=== PATIENT | male | born 1945 | race Caucasian/White ===

== ENCOUNTER 2018-08-27 12:22 | Inpatient (IN) | payer MEDICARE, MEDICAID ==
[~2018-08-27] VITALS: Ht 152.4 cm; Wt 63.5 kg
[~2018-08-27 12:22] MED LIST: ASPI-1159 PO; CARB200T PO; CLOZ100T31 PO; DOCU-150 PO; FERR-63 PO; FOLI-43 PO; MULT-1146 PO; RANI-633 PO
[2018-08-27 13:29] LABS: BASOPHILS % 0.4 % (0.0-2.0); EOSINOPHILS % 0.4 % (0.0-5.0); HEMATOCRIT. 34.2 % (42.0-52.0); HEMOGLOBIN. 11.5 g/dL (14.0-18.0); LYMPHOCYTES % 7.6 % (20.0-50.0); MEAN CORPUSCULAR HEMOGLOBIN 32.1 pg (28.0-32.0); MEAN CORPUSCULAR VOLUME 95.4 fL (80.0-94.0); MEAN PLATELET VOLUME 8.6 fl (7.4-10.4); MONOCYTES % 7.2 % (2.0-8.0); NEUTROPHILS % 84.4 % (40.0-76.0); PLATELET 178 x1000/uL (130-400); RED BLOOD CELL COUNT 3.59 mill/uL (4.7-6.1); RED CELL DISTRIBUTION WIDTH 14.4 % (11.6-14.6)
[2018-08-27 13:38] LABS: INR 1.1; PARTIAL THROMBOPLASTIN TIME 32.5 sec (23.4-31.0); PROTHROMBIN TIME 11.4 sec (9.1-11.1)
[2018-08-27 13:41] LABS: CHLORIDE 109 mEq/L (98-107); ETHANOL BLOOD < 10 mg/dL
[2018-08-27 13:47] LABS: CREATINE KINASE 39 IU/L (39-308)
[2018-08-27 13:49] LABS: CREATINE KINASE MB FRACTION < 1.0 ng/mL (0.5-3.6)
[2018-08-27 16:10] LABS: *AMPHETAMINES SCREEN URINE NEGATIVE (NEGATIVE); *BARBITURATES SCREEN URINE NEGATIVE (NEGATIVE); *BENZODIAZEPINES SCREEN URINE NEGATIVE (NEGATIVE); *COCAINE SCREEN URINE NEGATIVE (NEGATIVE); METHADONE URINE SCREEN NEGATIVE (NEGATIVE)
[2018-08-27 16:12] LABS: CANNABINOID URINE SCREEN NEGATIVE (NEGATIVE); OPIATES URINE SCREEN NEGATIVE (NEGATIVE); PHENCYCLIDINE URINE SCREEN NEGATIVE (NEGATIVE)
[2018-08-27] MEDS ORDERED: CLONIDINE 0.1MG TABLET PO PRN (16:30)
[2018-08-27] MEDS ORDERED: ONDANSETRON HCL 4MG/2ML INJ IV PRN (16:30)
[2018-08-27] MEDS ORDERED: DOCUSATE SODIUM 100MG CAPSULE PO PRN (16:30)
[2018-08-27] MEDS ORDERED: HYDROCODONE/ACETAMINOPHEN 5/325MG TABLET PO PRN (16:30)
[2018-08-27] MEDS ORDERED: IPRATROPIUM/ALBUTEROL 0.5-3(2.5)MG/3ML NEB INH PRN (16:30)
[2018-08-27] MEDS ORDERED: GUAIFENESIN 200MG/10ML SUGAR FREE UDC PO PRN (16:30)
[2018-08-27] MEDS ORDERED: MAGNESIUM/ALUMINUM HYDROXIDE/SIMETHICONE 30ML UDC PO PRN (16:30)
[2018-08-27] MEDS: SODIUM CHLORIDE 0.9% 1,000 ML IV SCH (20:54)
[2018-08-27] MEDS ORDERED: OMEPRAZOLE 20MG CAPSULE EXTENDED RELEASE PO SCH (21:00)
[2018-08-27] MEDS: ACETAMINOPHEN 325MG TABLET PO PRN (21:02)
[2018-08-28 04:03] VITALS: BP 132/62
[2018-08-28 04:26] VITALS: BP 124/63
[2018-08-28] MEDS: FOLIC ACID 1MG TABLET PO SCH (08:02)
[2018-08-28] MEDS: THIAMINE HCL 100MG TABLET PO SCH (08:02)
[2018-08-28] MEDS: OMEPRAZOLE 20MG CAPSULE EXTENDED RELEASE PO SCH ×2 (08:02→20:53)
[2018-08-28] MEDS: FERROUS SULFATE 325MG TABLET PO SCH (08:02)
[2018-08-28] MEDS: MULTIVITAMINS,THER W-MINERALS TABLET PO SCH (08:02)
[2018-08-28] MEDS: CARBAMAZEPINE 200MG TABLET PO SCH (08:03)
[2018-08-28 08:10] VITALS: BP 122/54
[2018-08-28] MEDS ORDERED: FERROUS SULFATE 325MG TABLET PO SCH ×2 (09:00)
[2018-08-28] MEDS ORDERED: CARBAMAZEPINE 200MG TABLET PO SCH (09:00)
[2018-08-28 12:21] VITALS: BP 114/52
[2018-08-28] MEDS: SODIUM CHLORIDE 0.9% 1,000 ML IV SCH ×2 (13:04→20:37)
[2018-08-28 16:20] VITALS: BP 112/56
[2018-08-28] MEDS ORDERED: NON FORMULARY PATIENT HOME MED EA XX SCH ×2 (18:30→21:00)
[2018-08-28 20:00] VITALS: BP 110/40
[2018-08-29] VITALS (7 sets, daily range): BP systolic 106–137; BP diastolic 54–71
[2018-08-29 06:52] LABS: BASOPHILS % 0.4 % (0.0-2.0); EOSINOPHILS % 3.7 % (0.0-5.0); HEMATOCRIT. 31.9 % (42.0-52.0); HEMOGLOBIN. 10.6 g/dL (14.0-18.0); MEAN CORPUSCULAR HEMOGLOBIN 31.8 pg (28.0-32.0); MEAN CORPUSCULAR VOLUME 95.5 fL (80.0-94.0); MONOCYTES % 10.3 % (2.0-8.0); NEUTROPHILS % 66.6 % (40.0-76.0); PLATELET 180 x1000/uL (130-400); RED BLOOD CELL COUNT 3.35 mill/uL (4.7-6.1); RED CELL DISTRIBUTION WIDTH 14.5 % (11.6-14.6)
[2018-08-29] MEDS: OMEPRAZOLE 20MG CAPSULE EXTENDED RELEASE PO SCH ×2 (07:00→21:37)
[2018-08-29] MEDS: FOLIC ACID 1MG TABLET PO SCH (08:27)
[2018-08-29] MEDS: CARBAMAZEPINE 200MG TABLET PO SCH (08:27)
[2018-08-29] MEDS: FERROUS SULFATE 325MG TABLET PO SCH (08:27)
[2018-08-29] MEDS: THIAMINE HCL 100MG TABLET PO SCH (08:27)
[2018-08-29] MEDS: ASPIRIN 81MG TABLET PO SCH (08:27)
[2018-08-29] MEDS: MULTIVITAMINS,THER W-MINERALS TABLET PO SCH (08:27)
[2018-08-29 09:40] LABS: CHLORIDE 111 mEq/L (98-107)
[2018-08-29 09:50] LABS: PHOSPHORUS 2.5 mg/dL (2.5-4.9)
[2018-08-29] MEDS: SODIUM CHLORIDE 0.9% 1,000 ML IV SCH (11:11)
[2018-08-29 16:30] LABS: CREATINE KINASE 49 IU/L (39-308)
[2018-08-29 17:56] LABS: AMMONIA 44 uMol/L (<32)
[2018-08-29] MEDS: CLOZAPINE 100MG TAB PO SCH (21:36)
[2018-08-29] MEDS: CLOZAPINE 25MG TABLET PO SCH (21:36)
[2018-08-29] MEDS: ACETAMINOPHEN 325MG TABLET PO PRN (22:23)
[2018-08-30] VITALS: BP 127/67
[2018-08-30] MEDS: SODIUM CHLORIDE 0.9% 1,000 ML IV SCH (02:06)
[2018-08-30 04:00] VITALS: BP 97/42
[2018-08-30] MEDS: OMEPRAZOLE 20MG CAPSULE EXTENDED RELEASE PO SCH ×2 (07:03→20:35)
[2018-08-30 07:47] LABS: BASOPHILS % 0.4 % (0.0-2.0); EOSINOPHILS % 1.9 % (0.0-5.0); HEMATOCRIT. 32.6 % (42.0-52.0); HEMOGLOBIN. 11.1 g/dL (14.0-18.0); LYMPHOCYTES % 14.5 % (20.0-50.0); MEAN CORPUSCULAR HEMOGLOBIN 32.3 pg (28.0-32.0); MEAN CORPUSCULAR VOLUME 95.1 fL (80.0-94.0); MONOCYTES % 11.8 % (2.0-8.0); NEUTROPHILS % 71.4 % (40.0-76.0); PLATELET 180 x1000/uL (130-400); RED BLOOD CELL COUNT 3.42 mill/uL (4.7-6.1); RED CELL DISTRIBUTION WIDTH 13.9 % (11.6-14.6)
[2018-08-30 08:00] VITALS: BP 100/50
[2018-08-30] MEDS: CARBAMAZEPINE 200MG TABLET PO SCH (08:48)
[2018-08-30] MEDS: ASPIRIN 81MG TABLET PO SCH (08:48)
[2018-08-30] MEDS: FERROUS SULFATE 325MG TABLET PO SCH (08:48)
[2018-08-30] MEDS: THIAMINE HCL 100MG TABLET PO SCH (08:48)
[2018-08-30] MEDS: FOLIC ACID 1MG TABLET PO SCH (08:48)
[2018-08-30] MEDS: MULTIVITAMINS,THER W-MINERALS TABLET PO SCH (08:48)
[2018-08-30] MEDS: CLOZAPINE 100MG TABLET PO SCH (08:48)
[2018-08-30 09:35] LABS: CHLORIDE 114 mEq/L (98-107)
[2018-08-30 09:39] LABS: PHOSPHORUS 3.9 mg/dL (2.5-4.9)
[2018-08-30 12:00] VITALS: BP 102/58
[2018-08-30] MEDS: LACTULOSE 20G/30ML UDC PO SCH ×2 (15:21→21:01)
[2018-08-30 18:21] VITALS: BP 98/56
[2018-08-30 20:00] VITALS: BP 110/74
[2018-08-30] MEDS: CLOZAPINE 25MG TABLET PO SCH (20:17)
[2018-08-30] MEDS: CLOZAPINE 100MG TAB PO SCH (21:00)
[2018-08-31] VITALS (7 sets, daily range): BP systolic 95–133; BP diastolic 52–70
[2018-08-31] MEDS: SODIUM CHLORIDE 0.9% 1,000 ML IV SCH (05:04)
[2018-08-31] MEDS: LACTULOSE 20G/30ML UDC PO SCH ×3 (06:11→21:07)
[2018-08-31 06:14] LABS: BASOPHILS % 0.5 % (0.0-2.0); EOSINOPHILS % 2.6 % (0.0-5.0); HEMATOCRIT. 31.4 % (42.0-52.0); HEMOGLOBIN. 10.7 g/dL (14.0-18.0); LYMPHOCYTES % 17.2 % (20.0-50.0); MEAN CORPUSCULAR HEMOGLOBIN 32.6 pg (28.0-32.0); MEAN CORPUSCULAR VOLUME 95.9 fL (80.0-94.0); MEAN PLATELET VOLUME 9.4 fl (7.4-10.4); MONOCYTES % 9.1 % (2.0-8.0); NEUTROPHILS % 70.6 % (40.0-76.0); PLATELET 185 x1000/uL (130-400); RED BLOOD CELL COUNT 3.28 mill/uL (4.7-6.1); RED CELL DISTRIBUTION WIDTH 14.4 % (11.6-14.6)
[2018-08-31] MEDS: OMEPRAZOLE 20MG CAPSULE EXTENDED RELEASE PO SCH ×2 (06:25→20:36)
[2018-08-31 06:39] LABS: CHLORIDE 113 mEq/L (98-107)
[2018-08-31 06:58] LABS: AMMONIA 61 uMol/L (<32)
[2018-08-31] MEDS: CARBAMAZEPINE 200MG TABLET PO SCH (10:07)
[2018-08-31] MEDS: FOLIC ACID 1MG TABLET PO SCH (10:07)
[2018-08-31] MEDS: THIAMINE HCL 100MG TABLET PO SCH (10:07)
[2018-08-31] MEDS: FERROUS SULFATE 325MG TABLET PO SCH (10:07)
[2018-08-31] MEDS: ASPIRIN 81MG TABLET PO SCH (10:08)
[2018-08-31] MEDS: MULTIVITAMINS,THER W-MINERALS TABLET PO SCH (10:08)
[2018-08-31] MEDS: CLOZAPINE 100MG TABLET PO SCH (10:10)
[2018-08-31] MEDS: DEXAMETHASONE 4MG/ML 1ML VIAL IV SCH ×2 (18:14→23:26)
[2018-08-31] MEDS: CLOZAPINE 25MG TABLET PO SCH (20:36)
[2018-08-31] MEDS: CLOZAPINE 100MG TAB PO SCH (21:00)
[2018-09-01] VITALS: BP 114/50
[2018-09-01 04:00] VITALS: BP 126/60
[2018-09-01] MEDS: DEXAMETHASONE 4MG/ML 1ML VIAL IV SCH ×3 (05:44→17:38)
[2018-09-01] MEDS: LACTULOSE 20G/30ML UDC PO SCH ×3 (05:44→21:09)
[2018-09-01] MEDS: OMEPRAZOLE 20MG CAPSULE EXTENDED RELEASE PO SCH ×2 (06:25→20:30)
[2018-09-01] MEDS: SODIUM CHLORIDE 0.9% 1,000 ML IV SCH ×2 (06:28→20:45)
[2018-09-01 09:25] VITALS: BP 125/73
[2018-09-01] MEDS: FERROUS SULFATE 325MG TABLET PO SCH (09:44)
[2018-09-01] MEDS: CARBAMAZEPINE 200MG TABLET PO SCH (09:44)
[2018-09-01] MEDS: ASPIRIN 81MG TABLET PO SCH (09:44)
[2018-09-01] MEDS: FOLIC ACID 1MG TABLET PO SCH (09:44)
[2018-09-01] MEDS: MULTIVITAMINS,THER W-MINERALS TABLET PO SCH (09:44)
[2018-09-01] MEDS: CLOZAPINE 100MG TABLET PO SCH (09:44)
[2018-09-01] MEDS: THIAMINE HCL 100MG TABLET PO SCH (09:44)
[2018-09-01 12:35] VITALS: BP 108/66
[2018-09-01 16:43] VITALS: BP 129/64
[2018-09-01 20:00] VITALS: BP 116/68
[2018-09-01] MEDS: CLOZAPINE 100MG TAB PO SCH (20:31)
[2018-09-01] MEDS: CLOZAPINE 25MG TABLET PO SCH (20:31)
[2018-09-02] VITALS (7 sets, daily range): BP systolic 82–132; BP diastolic 40–65
[2018-09-02] MEDS: DEXAMETHASONE 4MG/ML 1ML VIAL IV SCH ×4 (05:59→18:03)
[2018-09-02] MEDS: LACTULOSE 20G/30ML UDC PO SCH ×3 (05:59→21:00)
[2018-09-02] MEDS: OMEPRAZOLE 20MG CAPSULE EXTENDED RELEASE PO SCH ×2 (06:31→20:41)
[2018-09-02 07:25] LABS: BASOPHILS % 0.1 % (0.0-2.0); EOSINOPHILS % 0.1 % (0.0-5.0); HEMATOCRIT. 33.9 % (42.0-52.0); HEMOGLOBIN. 11.2 g/dL (14.0-18.0); LYMPHOCYTES % 11.9 % (20.0-50.0); MEAN CORPUSCULAR HEMOGLOBIN 31.2 pg (28.0-32.0); MEAN CORPUSCULAR VOLUME 94.7 fL (80.0-94.0); MEAN PLATELET VOLUME 9.5 fl (7.4-10.4); MONOCYTES % 6.7 % (2.0-8.0); NEUTROPHILS % 81.2 % (40.0-76.0); PLATELET 249 x1000/uL (130-400); RED BLOOD CELL COUNT 3.58 mill/uL (4.7-6.1); RED CELL DISTRIBUTION WIDTH 14.2 % (11.6-14.6)
[2018-09-02 08:12] LABS: CHLORIDE 113 mEq/L (98-107)
[2018-09-02 08:19] LABS: PHOSPHORUS 3.4 mg/dL (2.5-4.9)
[2018-09-02] MEDS: ASPIRIN 81MG TABLET PO SCH (08:29)
[2018-09-02] MEDS: FERROUS SULFATE 325MG TABLET PO SCH (08:29)
[2018-09-02] MEDS: CARBAMAZEPINE 200MG TABLET PO SCH (08:29)
[2018-09-02] MEDS: THIAMINE HCL 100MG TABLET PO SCH (08:29)
[2018-09-02] MEDS: FOLIC ACID 1MG TABLET PO SCH (08:29)
[2018-09-02] MEDS: MULTIVITAMINS,THER W-MINERALS TABLET PO SCH (08:29)
[2018-09-02] MEDS: CLOZAPINE 100MG TABLET PO SCH (08:37)
[2018-09-02] MEDS: SODIUM CHLORIDE 0.9% 1,000 ML IV SCH ×2 (10:05→23:25)
[2018-09-02] MEDS: CLOZAPINE 25MG TABLET PO SCH (20:41)
[2018-09-02] MEDS: CLOZAPINE 100MG TAB PO SCH (20:41)
[2018-09-03 04:00] VITALS: BP 117/58
[2018-09-03] MEDS: DEXAMETHASONE 4MG/ML 1ML VIAL IV SCH ×3 (06:00→12:00)
[2018-09-03] MEDS: LACTULOSE 20G/30ML UDC PO SCH (06:00)
[2018-09-03] MEDS: OMEPRAZOLE 20MG CAPSULE EXTENDED RELEASE PO SCH (06:42)
[2018-09-03 08:00] VITALS: BP 123/59
[2018-09-03] MEDS: THIAMINE HCL 100MG TABLET PO SCH (09:30)
[2018-09-03] MEDS: MULTIVITAMINS,THER W-MINERALS TABLET PO SCH (09:30)
[2018-09-03] MEDS: ASPIRIN 81MG TABLET PO SCH (09:30)
[2018-09-03] MEDS: FERROUS SULFATE 325MG TABLET PO SCH (09:30)
[2018-09-03] MEDS: CARBAMAZEPINE 200MG TABLET PO SCH (09:31)
[2018-09-03] MEDS: FOLIC ACID 1MG TABLET PO SCH (09:31)
[2018-09-03] MEDS: CLOZAPINE 100MG TABLET PO SCH (09:31)
[2018-09-03 12:00] VITALS: BP 3/55
[2018-09-03] MEDS: SODIUM CHLORIDE 0.9% 1,000 ML IV SCH (12:33)
[2018-09-03 15:38] VITALS: BP 103/55
[2018-09-03 16:02] VITALS: BP 95/58
== END 2018-09-03 16:59 | DRG 73 ==
LOC: ER 12:38 → 6WST 15:08 → EDBEDREQ 15:24 → ENRESERV 08-28 01:17 → ER 08-28 01:34
PROVIDERS: ADMIT Internal Medicine; ATTEND Internal Medicine
DX: G90.8 Other disorders of autonomic nervous system (principal); J18.9 Pneumonia, unspecified organism; R13.10 Dysphagia, unspecified; G99.2 Myelopathy in diseases classified elsewhere; M48.02 Spinal stenosis, cervical region; G40.909 Epilepsy, unspecified, not intractable, without status epilepticus; F20.9 Schizophrenia, unspecified; D72.829 Elevated white blood cell count, unspecified; M48.061 Spinal stenosis, lumbar region without neurogenic claudication; R26.9 Unspecified abnormalities of gait and mobility; M54.16 Radiculopathy, lumbar region; F32.9 Major depressive disorder, single episode, unspecified; R62.7 Adult failure to thrive; M47.892 Other spondylosis, cervical region; I10 Essential (primary) hypertension; D63.8 Anemia in other chronic diseases classified elsewhere; W19.XXXA Unspecified fall, initial encounter; Y93.89 Activity, other specified; Z79.82 Long term (current) use of aspirin; Z79.899 Other long term (current) drug therapy; Y92.89 Other specified places as the place of occurrence of the external cause; Y99.8 Other external cause status
CPT/HCPCS: 36415; 70551; 71045; 72141; 72146; 72148; 80048; 80156; 80305; 82140; 82550; 82553; 83735; 83880; 84100; 84145; 84484; 92610; 93005; 93970; 97116; 97162; 97166; 97168; 99285; C1893; G0482; J1100; J7030

== ENCOUNTER 2018-12-11 20:37 | Inpatient (IN) | payer MEDICARE, OTHER ==
[~2018-12-11] VITALS: Ht 182.9 cm; Wt 63.5 kg
[2018-12-11] MEDS ORDERED: SODIUM CHLORIDE 0.9% 1000ML BAG (SEPSIS BOLUS) IV ONE (21:30)
[2018-12-11] MEDS ORDERED: VANCOMYCIN 1 G PREMIX 200 ML IV ONE (22:30)
[2018-12-11] MEDS ORDERED: ACETAMINOPHEN 650MG SUPP PR ONE (22:30)
[2018-12-11] MEDS ORDERED: PIPERACILLIN/TAZ 3.375G PREMIX 50 ML IV ONE (22:30)
[2018-12-11 22:49] LABS: BASOPHILS % 0.4 % (0.0-2.0); EOSINOPHILS % 1.3 % (0.0-5.0); HEMATOCRIT. 39.8 % (42.0-52.0); HEMOGLOBIN. 12.6 g/dL (14.0-18.0); LYMPHOCYTES % 13.5 % (20.0-50.0); MEAN CORPUSCULAR HEMOGLOBIN 31.1 pg (28.0-32.0); MEAN CORPUSCULAR VOLUME 98.5 fL (80.0-94.0); MONOCYTES % 6.3 % (2.0-8.0); NEUTROPHILS % 78.5 % (40.0-76.0); PLATELET 298 x1000/uL (130-400); RED BLOOD CELL COUNT 4.05 mill/uL (4.7-6.1); RED CELL DISTRIBUTION WIDTH 13.5 % (11.6-14.6)
[2018-12-11 22:53] LABS: INR 1.2; PROTHROMBIN TIME 11.8 sec (9.1-11.1)
[2018-12-11 22:57] LABS: CHLORIDE 123 mEq/L (98-107)
[2018-12-11 22:59] LABS: CLARITY URINE CLEAR (CLEAR); COLOR URINE DARK YELLOW (YELLOW); KETONES URINE TRACE (NEGATIVE); LEUKOCYTE ESTERASE URINE TRACE (NEGATIVE); NITRITE URINE NEGATIVE (NEGATIVE); OCCULT BLOOD URINE 2+ (NEGATIVE); PROTEIN URINE TRACE (NEGATIVE)
[2018-12-12] MEDS ORDERED: ACETAMINOPHEN 325MG TABLET PO PRN (11:00)
[2018-12-12] MEDS ORDERED: ONDANSETRON HCL 4MG/2ML INJ IV PRN (11:00)
[2018-12-12] MEDS ORDERED: IPRATROPIUM/ALBUTEROL 0.5-3(2.5)MG/3ML NEB INH PRN (11:00)
[2018-12-12] MEDS ORDERED: HYDROCODONE/ACETAMINOPHEN 5/325MG TABLET PO PRN (11:00)
[2018-12-12] MEDS ORDERED: CLONIDINE 0.1MG TABLET PO PRN (11:00)
[2018-12-12 11:39] LABS: BASOPHILS % 0.2 % (0.0-2.0); EOSINOPHILS % 1.5 % (0.0-5.0); HEMATOCRIT. 38.1 % (42.0-52.0); HEMOGLOBIN. 12.1 g/dL (14.0-18.0); LYMPHOCYTES % 9.3 % (20.0-50.0); MEAN CORPUSCULAR HEMOGLOBIN 31.2 pg (28.0-32.0); MEAN CORPUSCULAR VOLUME 98.3 fL (80.0-94.0); MEAN PLATELET VOLUME 9.9 fl (7.4-10.4); MONOCYTES % 4.8 % (2.0-8.0); NEUTROPHILS % 84.2 % (40.0-76.0); PLATELET 294 x1000/uL (130-400); RED BLOOD CELL COUNT 3.88 mill/uL (4.7-6.1); RED CELL DISTRIBUTION WIDTH 13.4 % (11.6-14.6)
[2018-12-12 11:46] LABS: CHLORIDE 127 mEq/L (98-107)
[2018-12-12 11:55] LABS: PHOSPHORUS 3.2 mg/dL (2.5-4.9)
[2018-12-12 11:56] LABS: LDL CHOLESTEROL 76 mg/dL (5-100)
[2018-12-12 11:57] LABS: HDL CHOLESTEROL 36 mg/dL (40-59); TOTAL IRON BINDING CAPACITY 187 ug/dL (250-450)
[2018-12-12] MEDS ORDERED: DEXT 5% WATER 100 ML IV ONE (12:15)
[2018-12-12 12:16] LABS: VITAMIN B12 SERUM 334 pg/mL (211-911)
[2018-12-12 12:19] LABS: FOLIC ACID (FOLATE) SERUM > 20.00 ng/mL (>5.38)
[2018-12-12 12:52] LABS: FERRITIN 168 ng/mL (22-322)
[2018-12-12] MEDS ORDERED: CEFTRIAXONE 1 G PREMIX 50 ML IV SCH (14:15)
[2018-12-12 16:29] LABS: CHLORIDE 127 mEq/L (98-107)
[2018-12-12 17:00] VITALS: BP 110/63
[2018-12-12] MEDS ORDERED: SODIUM CHLORIDE 0.9% 1,000 ML IV SCH (17:00)
[2018-12-12 17:15] VITALS: BP 110/63
[2018-12-12 20:00] VITALS: BP 134/65
[2018-12-12 20:41] LABS: CHLORIDE 127 mEq/L (98-107)
[2018-12-13] VITALS (7 sets, daily range): BP systolic 104–146; BP diastolic 59–75
[2018-12-13 00:38] LABS: CHLORIDE 128 mEq/L (98-107)
[2018-12-13 07:15] LABS: BASOPHILS % 0.4 % (0.0-2.0); EOSINOPHILS % 2.3 % (0.0-5.0); HEMATOCRIT. 37.3 % (42.0-52.0); HEMOGLOBIN. 11.8 g/dL (14.0-18.0); LYMPHOCYTES % 14.3 % (20.0-50.0); MEAN CORPUSCULAR HEMOGLOBIN 31.2 pg (28.0-32.0); MEAN CORPUSCULAR VOLUME 98.3 fL (80.0-94.0); MEAN PLATELET VOLUME 9.7 fl (7.4-10.4); MONOCYTES % 6.6 % (2.0-8.0); NEUTROPHILS % 76.4 % (40.0-76.0); PLATELET 297 x1000/uL (130-400); RED BLOOD CELL COUNT 3.79 mill/uL (4.7-6.1); RED CELL DISTRIBUTION WIDTH 13.5 % (11.6-14.6)
[2018-12-13 07:22] LABS: CHLORIDE 128 mEq/L (98-107)
[2018-12-13 08:15] LABS: HIV SCREEN 4G Non Reactive (Non Reactive)
[2018-12-13] MEDS: DEXTROSE 5% WATER 1,000 ML IV SCH ×2 (11:00→18:41)
[2018-12-13] MEDS: CEFTRIAXONE 1 G PREMIX 50 ML IV SCH (11:07)
[2018-12-13] MEDS ORDERED: CEFTRIAXONE 1 G PREMIX 50 ML IV SCH (15:00)
[2018-12-13] MEDS: CARBAMAZEPINE 200MG TABLET PO SCH (18:40)
[2018-12-14] VITALS: BP 115/63
[2018-12-14] MEDS: DEXTROSE 5% WATER 1,000 ML IV SCH ×3 (01:31→18:49)
[2018-12-14 04:00] VITALS: BP 113/64
[2018-12-14 07:54] LABS: BASOPHILS % 0.4 % (0.0-2.0); EOSINOPHILS % 4.1 % (0.0-5.0); HEMATOCRIT. 35.9 % (42.0-52.0); HEMOGLOBIN. 11.6 g/dL (14.0-18.0); LYMPHOCYTES % 24.6 % (20.0-50.0); MEAN CORPUSCULAR HEMOGLOBIN 31.2 pg (28.0-32.0); MEAN CORPUSCULAR VOLUME 97.1 fL (80.0-94.0); MEAN PLATELET VOLUME 10.1 fl (7.4-10.4); MONOCYTES % 5.6 % (2.0-8.0); NEUTROPHILS % 65.3 % (40.0-76.0); PLATELET 267 x1000/uL (130-400); RED CELL DISTRIBUTION WIDTH 13.3 % (11.6-14.6)
[2018-12-14 08:00] VITALS: BP 113/63
[2018-12-14 08:08] LABS: CHLORIDE 122 mEq/L (98-107)
[2018-12-14] MEDS: CARBAMAZEPINE 200MG TABLET PO SCH (08:22)
[2018-12-14] MEDS: CEFTRIAXONE 1 G PREMIX 50 ML IV SCH (08:22)
[2018-12-14] MEDS: ENOXAPARIN 40MG/0.4ML SYR SUBCUT SCH (08:23)
[2018-12-14 12:00] VITALS: BP 138/89
[2018-12-14 16:00] VITALS: BP 124/58
[2018-12-14 20:00] VITALS: BP 110/60
[2018-12-15] VITALS: BP 131/64
[2018-12-15] MEDS: DEXTROSE 5% WATER 1,000 ML IV SCH ×3 (01:43→17:53)
[2018-12-15 04:00] VITALS: BP 120/48
[2018-12-15] MEDS: ENOXAPARIN 40MG/0.4ML SYR SUBCUT SCH (09:07)
[2018-12-15] MEDS: CEFTRIAXONE 1 G PREMIX 50 ML IV SCH (09:07)
[2018-12-15] MEDS: CARBAMAZEPINE 200MG TABLET PO SCH (09:07)
[2018-12-15 12:00] VITALS: BP 128/51
[2018-12-15 16:00] VITALS: BP 131/51
[2018-12-15 20:00] VITALS: BP 120/60
[2018-12-16] VITALS: BP 108/53
[2018-12-16] MEDS: DEXTROSE 5% WATER 1,000 ML IV SCH (01:13)
[2018-12-16 04:00] VITALS: BP 134/68
[2018-12-16 06:33] LABS: CHLORIDE 112 mEq/L (98-107)
[2018-12-16 06:52] LABS: BASOPHILS % 0.2 % (0.0-2.0); EOSINOPHILS % 3.1 % (0.0-5.0); HEMOGLOBIN. 10.7 g/dL (14.0-18.0); LYMPHOCYTES % 15.4 % (20.0-50.0); MEAN CORPUSCULAR HEMOGLOBIN 31.1 pg (28.0-32.0); MEAN CORPUSCULAR VOLUME 95.9 fL (80.0-94.0); MEAN PLATELET VOLUME 10.6 fl (7.4-10.4); MONOCYTES % 4.8 % (2.0-8.0); NEUTROPHILS % 76.5 % (40.0-76.0); PLATELET 213 x1000/uL (130-400); RED BLOOD CELL COUNT 3.44 mill/uL (4.7-6.1); RED CELL DISTRIBUTION WIDTH 12.7 % (11.6-14.6)
[2018-12-16 08:00] VITALS: BP 108/43
[2018-12-16] MEDS: CEFTRIAXONE 1 G PREMIX 50 ML IV SCH (08:04)
[2018-12-16] MEDS: CARBAMAZEPINE 200MG TABLET PO SCH (08:05)
[2018-12-16] MEDS: ENOXAPARIN 40MG/0.4ML SYR SUBCUT SCH (08:07)
[2018-12-16 12:00] VITALS: BP 111/58
[2018-12-16 16:00] VITALS: BP 120/50
[2018-12-16] MEDS ORDERED: CLOZAPINE PO SCH (17:00)
[2018-12-16 18:37] VITALS: BP 130/82
== END 2018-12-16 19:50 | DRG 854 ==
LOC: ER 20:37 → 7WST 23:36 → EDBEDREQSVC 23:38 → EDBEDREQ 23:38 → EDBEDREQTM 23:38 → CANRESERV 12-12 15:27 → ENRESERV 12-12 15:27
PROVIDERS: ADMIT Internal Medicine; ATTEND Internal Medicine
PROC: 0JDQ0ZZ Extraction of Right Foot Subcutaneous Tissue and Fascia, Open Approach (ICD-10-PCS; principal; 2018-12-14)
DX: A41.9 Sepsis, unspecified organism (principal); E46 Unspecified protein-calorie malnutrition; E87.0 Hyperosmolality and hypernatremia; N39.0 Urinary tract infection, site not specified; N17.9 Acute kidney failure, unspecified; Z68.1 Body mass index [BMI] 19.9 or less, adult; L97.419 Non-pressure chronic ulcer of right heel and midfoot with unspecified severity; E86.0 Dehydration; R62.7 Adult failure to thrive; I45.10 Unspecified right bundle-branch block; R80.9 Proteinuria, unspecified; L89.620 Pressure ulcer of left heel, unstageable; L89.510 Pressure ulcer of right ankle, unstageable; L89.890 Pressure ulcer of other site, unstageable; R31.9 Hematuria, unspecified; F20.9 Schizophrenia, unspecified; L89.150 Pressure ulcer of sacral region, unstageable; D53.9 Nutritional anemia, unspecified; G40.909 Epilepsy, unspecified, not intractable, without status epilepticus; J44.9 Chronic obstructive pulmonary disease, unspecified; Z79.82 Long term (current) use of aspirin; Z87.81 Personal history of (healed) traumatic fracture; Z79.899 Other long term (current) drug therapy
CPT/HCPCS: 36415; 71045; 80048; 80061; 82607; 82728; 82746; 83036; 83540; 83550; 83605; 83735; 83880; 84100; 84134; 84145; 84443; 84484; 87389; 93005; 93306; 93970; 96365; 96366; 96367; 97163; 97530; 99291; A6261; J0696; J1650; J2543; J3370; J7030; J7070